=== PATIENT | female | born 1980 | race Caucasian/White ===

== ENCOUNTER → 2018-08-28 | Outpatient (CLI) | payer OTHER ==
[2005-11-01 08:30] VITALS: TEMP 98.4
[~2018-08-28] MED LIST: ALEVE PO; BCP TD; LORTAB 5/500 501 TAB PO; PRENATAL1 TA1 PO; VALIUM 5MG T5 MG/TAB PO
== END ==
LOC: COL.RAD 13:04
DX: H47.331 Pseudopapilledema of optic disc, right eye (principal)
CPT/HCPCS: A9585

== ENCOUNTER → 2019-09-16 | Outpatient (CLI) | payer OTHER ==
[2005-11-01 08:30] VITALS: TEMP 98.4
== END ==
LOC: MC.RAD 15:12
DX: Z12.31 Encounter for screening mammogram for malignant neoplasm of breast (principal); Z98.82 Breast implant status

== ENCOUNTER → 2021-03-08 | Outpatient (CLI) | payer OTHER ==
[2005-11-01 08:30] VITALS: TEMP 98.4
== END ==
LOC: MC.RAD 14:07
DX: Z12.31 Encounter for screening mammogram for malignant neoplasm of breast (principal)

== ENCOUNTER → 2022-05-10 | Outpatient (CLI) | payer OTHER ==
[2005-11-01 08:30] VITALS: TEMP 98.4
== END ==
LOC: MC.RAD 08:20
DX: Z12.31 Encounter for screening mammogram for malignant neoplasm of breast (principal)

== ENCOUNTER → 2023-05-14 | Outpatient (CLI) | payer OTHER ==
[2005-11-01 08:30] VITALS: TEMP 98.4
== END ==
LOC: CANSCHCLI → MC.RAD 07:58
DX: Z12.31 Encounter for screening mammogram for malignant neoplasm of breast (principal); Z98.82 Breast implant status